=== PATIENT | female | born 1960 | race Caucasian/White ===

== ENCOUNTER → 2017-03-14 | Outpatient (CLI) | payer OTHER | LOC: FIMAGING 08:56 | PROVIDERS: ATTEND Internal Medicine Hematology & Oncology | DX: D25.9 Leiomyoma of uterus, unspecified (principal); N83.201 Unspecified ovarian cyst, right side; E86.0 Dehydration; C50.919 Malignant neoplasm of unspecified site of unspecified female breast; Z17.0 Estrogen receptor positive status [ER+] ==

== ENCOUNTER → 2017-05-03 | Outpatient (CLI) | payer OTHER | LOC: FIMAGING 09:35 | PROVIDERS: ATTEND Internal Medicine Hematology & Oncology | DX: Z13.820 Encounter for screening for osteoporosis (principal); Z85.3 Personal history of malignant neoplasm of breast; Z78.0 Asymptomatic menopausal state ==

== ENCOUNTER 2017-06-22 09:47 | Emergency (ER) | payer OTHER ==
[2017-06-22 09:55] VITALS: PULSE 78; TEMP 97.9; O2SAT 92
--- NOTE | 2017-06-22 12:12 | EDPHY ---
HPI/HX/ROS/PE/MDM Narrative: CHIEF COMPLAINT: Right hip pain HPI: The patient is a 56-year-old female who states that she fell 2 days ago and landed on her right hip. Since that time she has had persistent pain in her right hip. She denies pain in her back. She denies other site of pain. She has been able to walk without significant difficulty. No weakness, numbness or tingling. REVIEW OF SYSTEMS: Aside from elements discussed in the HPI, a comprehensive 10-point review of systems was reviewed and is negative. PMH: History of breast cancer. No history of hip surgery. SOCIAL HISTORY: . Works from home. PHYSICAL EXAM: General:Patient is alert, in no acute distress. ENT:Eyes are normal to inspection. ENT inspection normal. Neck: Normal inspection. Full range of motion. Respiratory:No respiratory distress. Breath sounds normal bilaterally. Cardiovascular: Regular rate and rhythm. Strong peripheral pulses. Normal cap refill. Abdomen:The abdomen is nontender to palpation. There are no peritoneal signs. There are normal bowel sounds. Back: Normal to inspection. No tenderness to palpation. Skin: Normal color. No rash. Warm and dry. Extremities: Normal appearance. Full range of motion. Tenderness to palpation along the right hip is noted. No crepitus. Neuro: Oriented x3. Normal motor function. Normal sensory function. ED Course: X-ray of the right hip is negative for fracture dislocation. CT scan of pelvis and hip is also negative for fracture, dislocation or other significant injury. MDM: This patient presents with right-sided hip pain after fall. X-ray and CT are negative for fracture or other significant injury. I think the patient is safe for outpatient follow-up and I will refer her to Orthopedics. - Data Points Imaging Results: Imaging Impressions Hip X-Ray 06/22/17 10:17 Impression: Nothing acute identified. General Time Seen by Provider: 06/22/17 10:12 Initial Vital Signs: Initial Vital Signs Temperature (C) 36.6 C 06/22/17 09:53 Heart Rate 78 06/22/17 09:53 Respiratory Rate 18 06/22/17 09:53 Blood Pressure 129/73 H 06/22/17 09:53 O2 Sat (%) 92 06/22/17 09:53 O2 Delivery Mode Room Air Allergies/Adverse Reactions: latex [Latex] Allergy (Verified 06/22/17 09:52) Penicillins Allergy (Verified 06/22/17 09:52) Sulfa (Sulfonamide Antibiotics) Allergy (Verified 06/22/17 09:52) HEAVY FRAGRANCES Allergy (Uncoded 03/30/11 12:26) SEASONAL Allergy (Uncoded 03/30/11 12:27) Home Medications: Medication Instructions Recorded Albuterol [Proventil Inhaler HFA 2 puffs IH Q4 PRN 11/23/15 (*)] Albuterol [Proventil Neb] 2.5 mg IH Q4 PRN 11/23/15 Anastrozole [Arimidex 1 mg (*)] 1 mg PO HS 11/23/15 Fluticasone/Salmeter 500/50Mcg 1 puffs IH BID 11/23/15 [Advair 500/50 (*)] Herbals/Supplements -Info Only 1 ea PO DAILY 11/23/15 Ibuprofen [Motrin (*)] 400 mg PO BID PRN 11/23/15 Montelukast Sodium [Singulair 10 10 mg PO HS 11/23/15 mg (*)] Hydrochlorothiazide 06/22/17 Departure - Departure Disposition: Home, Routine, Self-Care Clinical Impression: Contusion, hip Condition: Good Instructions: Hip Contusion (ED) Additional Instructions: Rest, ice, elevation. Follow up with an orthopedic surgeon within one week if pain persists. Return to the emergency department for worsening pain, swelling , numbness, weakness or other concerns. Referrals: NONE *PRIMARY CARE P,. [Primary Care Provider] - As per Instructions Herb Brower MD [Medical Doctor] - As per Instructions
[2017-06-22 12:24] VITALS: BP 144/80; RESP 97
== END 2017-06-22 12:24 | disposition home or self-care (01) ==
DX: S70.01XA Contusion of right hip, initial encounter (principal); Z85.3 Personal history of malignant neoplasm of breast; Z91.040 Latex allergy status; W19.XXXA Unspecified fall, initial encounter

== ENCOUNTER 2018-03-18 07:12 | Day surgery (SDC) | payer OTHER ==
[2018-03-18] MEDS ORDERED: CLINDAMYCIN 900 MG/DEXTROSE 50 ML IV ONE (07:33)
[2018-03-18] MEDS ORDERED: LR 1,000 ML IV ONE (07:34)
[2018-03-18] MEDS ORDERED: LIDOCAINE 1% 2 ML INJ ID PRN (07:34)
[2018-03-18] MEDS ORDERED: BUPIVACAINE/EPI 0.5% 30 ML SDV ONE (09:02)
[2018-03-18] MEDS ORDERED: THROMBIN (BOVINE) 5,000 UNIT VIAL TP ONE (09:02)
--- NOTE | 2018-03-18 09:11 | PDANEPAE ---
ANE Past Medical History - Cardiovascular History Hx Hypertension: Yes Hx Arrhythmias: No Hx Chest Pain: No Hx Coronary Artery / Peripheral Vascular Disease: No Hx CHF / Valvular Disease: No Hx Palpitations: No - Pulmonary History Hx COPD: No Hx Asthma/Reactive Airway Disease: Yes Hx Recent Upper Respiratory Infection: No Hx Oxygen in Use at Home: Yes O2 in Use at Home (L/minute): 3.L with C-PAP Hx Sleep Apnea: Yes Sleep Apnea Screening Result - Last Documented: Positive - Neurologic History Hx Cerebrovascular Accident: No Hx Seizures: No Hx Dementia: No - Endocrine History Hx Diabetes: No - Renal History Hx Renal Disorders: No - Liver History Hx Hepatic Disorders: No - Neurological & Psychiatric Hx Hx Neurological and Psychiatric Disorders: No - Cancer History Hx Cancer: Yes Cancer History Comment: lobular invasive breast cancer 2010,bilat mastectomy - Congenital Disorder History Hx Congenital Disorders: Yes Congenital History Comment: breast cancer. heart disease - GI History Hx Gastrointestinal Disorders: Yes Gastrointestinal History Comment: reflux, gerd - Other Health History Other Health History: none - Chronic Pain History Chronic Pain: No - Surgical History Prior Surgeries: left ankle replacement 2014 ANE Review of Systems Review of Systems: - Exercise capacity METS (RN): 4 METS ANE Patient History - Allergies Allergies/Adverse Reactions: adhesive tape Allergy (Verified 03/18/18 07:53) Rash Penicillins Allergy (Verified 03/15/18 12:06) Rash Sulfa (Sulfonamide Antibiotics) Allergy (Verified 03/15/18 12:06) Rash HEAVY FRAGRANCES Allergy (Uncoded 03/15/18 12:06) Other-Enter Comments SEASONAL Allergy (Uncoded 03/15/18 12:06) Other-Enter Comments - Home Medications Home Medications: Albuterol [Proventil Inhaler HFA (*)] 11/23/15 [Last Taken 03/16/18] Albuterol [Proventil Neb] 11/23/15 [Last Taken 11/29/17] Anastrozole [Arimidex 1 mg (*)] 11/23/15 [Last Taken 03/17/18 21:30] Fluticasone/Salmeter 500/50Mcg [Advair 500/50 (*)] 11/23/15 [Last Taken 06:00] Montelukast Sodium [Singulair 10 mg (*)] 11/23/15 [Last Taken 03/17/18 21:30] Acetaminophen 03/15/18 [Last Taken 03/16/18] Allopurinol 03/15/18 [Last Taken 03/17/18 07:30] Calcium 03/15/18 [Last Taken 03/17/18 21:30] Cholecalciferol (Vitamin D3) 03/15/18 [Last Taken 03/17/18 07:30] Clonidine 03/15/18 [Last Taken 03/17/18 21:30] Colchicine 03/15/18 [Last Taken 03/17/18 07:30] Losartan Potassium 03/15/18 [Last Taken 03/17/18 07:30] Prednisone 03/15/18 [Last Taken 10/01/10] Proair Hfa Icu (*) 03/15/18 [Last Taken 03/18/18 06:00] Ranitidine HCl 03/15/18 [Last Taken 03/18/18 06:00] - NPO status NPO Since - Liquids (Date): 03/17/18 NPO Since - Liquids (Time): 21:30 NPO Since - Solids (Date): 03/17/18 NPO Since - Solids (Time): 21:00 - Smoking Hx Smoking Status: Never smoked - Family Anes Hx Family Hx Anesthesia Complications: none ANE Labs/Vital Signs - Vital Signs Blood Pressure: 146/97 Heart Rate: 70 Respiratory Rate: 16 O2 Sat (%): 93 Height: 162.56 cm Weight: 96.615 kg ANE Physical Exam - Airway Neck exam: FROM Mallampati Score: Class 3 Mouth exam: small mouth opening - Pulmonary Pulmonary: no respiratory distress - Cardiovascular Cardiovascular: regular rate and rhythym - ASA Status ASA Status: III (fernandez) ANE Anesthesia Plan Anesthesia Plan: GA w LMA
[2018-03-18] MEDS ORDERED: DEXAMETHASONE 4 MG/ML VIAL ONE ×2 (09:18)
[2018-03-18] MEDS ORDERED: fentaNYL 100 MCG/2 ML INJ ONE ×2 (09:18→10:16)
[2018-03-18] MEDS ORDERED: METOCLOPRAMIDE 10 MG/2 ML VIAL ONE (09:18)
[2018-03-18] MEDS ORDERED: LIDOCAINE 2% 100 MG/5 ML SYR ONE (09:18)
[2018-03-18] MEDS ORDERED: PROPOFOL 200 MG/20 ML VIAL ONE (09:18)
[2018-03-18] MEDS: BACITRACIN ZINC 14.2 GM OINTTUBE TP ONE ×2 (09:49→10:03)
[2018-03-18] MEDS ORDERED: ALBUTEROL 3 ML DEYVIAL IH PRN (10:14)
[2018-03-18] MEDS ORDERED: HYDROCODONE/APAP 5/325 TAB PO PRN (10:14)
[2018-03-18] MEDS ORDERED: NALOXONE HCL 0.4 MG/ML INJ IVP PRN (10:14)
--- NOTE | 2018-03-18 10:15 | POSTOPPROG ---
Post Op Note Date of Operation: 03/18/18 Surgeon: Damon Perez Manufacturing Chief Engineer: Theresa Jacob Anesthesiologist: Rajinder Arroyo Anesthesia: LMA Pre-op Diagnosis: L postauricular mass, hx of breast cancer Post-op Diagnosis: same Procedure: excisional biopsy of left retroauricular mass Findings: probably benign cyst, pathology pendings Inf/Abcess present in the surg proc area at time of surgery?: No EBL: Minimal Complications: none Specimen(s): to pathology
--- NOTE | 2018-03-18 10:16 | POSTANESTH ---
Post Anesthetic Evaluation Cardiovascular Status: Similar to Pre-Op Cond Respiratory Status: Similar to Pre-op Cond. Level of Consciousness/Mental Status: Mildly Sleepy, Arousable Pain Control: Adequate, Prn Tx Ordered Nausea/Vomiting Control: Adequate, Prn Tx Ordered Complications Possibly Related to Anesthesia: None Noted
[2018-03-18] MEDS: fentaNYL 100 MCG/2 ML INJ IVP PRN ×2 (10:21→10:43)
[2018-03-18] MEDS ORDERED: ONDANSETRON 4 MG/2 ML VIAL ONE (10:23)
[2018-03-18] MEDS: ONDANSETRON 4 MG/2 ML VIAL IVP PRN ×2 (10:24→10:34)
[2018-03-18 11:38] VITALS: BP 140/81
--- NOTE | 2018-03-23 20:51 | GOP ---
[f rep st] OPERATIVE REPORT DATE OF OPERATION: 03/18/2018 SURGEON: Damon Perez MD PREOPERATIVE DIAGNOSIS: A left postauricular mass with a history of breast cancer. POSTOPERATIVE DIAGNOSIS: Benign lymph node, pathology pending. PROCEDURE PERFORMED: Excision of left postauricular mass FINDINGS: Benign-appearing 5 mm lymph node DESCRIPTION OF PROCEDURE: The patient was taken to the operating room where she received satisfactory general laryngeal mask anesthesia. She was placed in the supine position, prepped and draped in the usual sterile fashion. A curvilinear incision was made over the palpable mass in the postauricular area. Dissection extended down through the subcutaneous tissue and until the mass was encountered. It was carefully dissected free from the surrounding structures and off the back of the external ear canal with much care to avoid any injury to any branches of the facial nerve. The 5 mm mass was dissected free completely and sent to Pathology, thought to be benign. Hemostasis was assured. The wound was closed with 4-0 Monocryl subcuticular sutures and some Dermabond. She tolerated the procedure well. Taken to recovery room in good condition. Final path report was pending. There were no complications. /[id number]/MODL MTDD
== END 2018-03-18 12:45 | disposition home or self-care (01) ==
LOC: FSGY 07:12
PROVIDERS: ATTEND Surgery
PROC: 07B00ZX Excision of Head Lymphatic, Open Approach, Diagnostic (ICD-10-PCS; principal; 2018-03-18 09:00)
DX: D23.22 Other benign neoplasm of skin of left ear and external auricular canal (principal); Z85.3 Personal history of malignant neoplasm of breast; Z90.13 Acquired absence of bilateral breasts and nipples
CPT/HCPCS: J1100; J2001; J2405; J2704; J2765; J3010

== ENCOUNTER → 2018-06-10 | Outpatient (CLI) | payer OTHER | LOC: FIMAGING 13:09 | PROVIDERS: ATTEND Internal Medicine Hematology & Oncology | DX: Z13.820 Encounter for screening for osteoporosis (principal); M85.89 Other specified disorders of bone density and structure, multiple sites; Z78.0 Asymptomatic menopausal state; Z87.81 Personal history of (healed) traumatic fracture; Z85.3 Personal history of malignant neoplasm of breast; N83.201 Unspecified ovarian cyst, right side; D25.1 Intramural leiomyoma of uterus ==

== ENCOUNTER → 2019-01-22 | Outpatient (CLI) | payer OTHER | DX: J40 Bronchitis, not specified as acute or chronic (principal); Z85.3 Personal history of malignant neoplasm of breast ==